=== PATIENT | female | born 1960 | race Caucasian/White ===

== ENCOUNTER 2024-01-15 08:24 | Outpatient (CLI) | payer BC | END 2024-01-15 08:25 | disposition home or self-care (01) | LOC: CSHULT 08:24 | PROVIDERS: ATTEND Family Medicine | DX: R10.10 Upper abdominal pain, unspecified (principal); R14.0 Abdominal distension (gaseous) | CPT/HCPCS: 76705 ==

== ENCOUNTER 2025-01-23 13:03 | Outpatient (CLI) | payer BC ==
[2025-01-23 13:38] LABS: Estimated GFR - POC 82.0
== END 2025-01-23 13:04 | disposition home or self-care (01) ==
LOC: CSHMRI 13:03
PROVIDERS: ATTEND Internal Medicine Hematology & Oncology
DX: C50.811 Malignant neoplasm of overlapping sites of right female breast (principal)
CPT/HCPCS: 36415; 76376; 82565; C8908